=== PATIENT | female | born 1990 | race American Indian/Alaskan Native ===

== ENCOUNTER 2018-01-28 05:49 | Inpatient (IN) | payer OTHER ==
--- NOTE | 2018-01-26 13:45 | History and Physical Report ---
History of Present Illness Date of examination: 01/26/18 Chief complaint: IUP @39weeks. Desires repeat delivery History of present illness: EDC Confirmation: 02/04/2018 Gestational Age: 9 1/7 weeks Past History : 2 Term Births: 1 Premature Births: 0 Living Children: 1 Para: 1 Mult. Births: 0 Prev : 1 Aborta: 0 Elect. Ab: 0 Spont. Ab: 0 Ectopics: 0 # 1 Delivery date: 04/2011 Weeks Gestation: 40 labor: no Delivery type: Delivery location: [place] Infant Sex: Female weight: 7#9 Comments: distress Past Medical History: hearing impaired - bilateral hearing aides Past Surgical History: c/s 2010 mirena removal under general 2015 Past Medical History Surgery (Non-patient companion): c/s 2010 mirena removal under general 2015 Abnormal PAP: negative Social Hx: no ETOH/drugs/smoking not worknig Infection History Hx of STD: none HIV Risk Eval: no Hepatitis B Risk Eval: low risk Personal hx. of genital herpes: no Partner hx. of genital herpes: no Rash, Viral, or Febrile illness since last LMP? no Varicella/Chicken Pox Status: Immunized Genetic History Congenital Heart Defect: Mom: no Dad: no Dar Disease: Mom: no Dad: no Thalassemia Mom: no Dad: no Neural Tube Defect Mom: no Dad: no Down's Syndrome Mom: no Dad: no Mark-Sachs Mom: no Dad: no Sickle Cell Disease/Trait Mom: no Dad: no Hemophilia Mom: no Dad: no Muscular Dystrophy Mom: no Dad: no Cystic Fibrosis Mom: no Dad: no Harlan Chorea Mom: no Dad: no Mental Retardation Mom: no Dad: no Fragile X Mom: no Dad: no Other Genetic/Chromosomal Disorder Mom: no Dad: no Child w/other defect Mom: no Dad: no Enviromental Exposures Xray Exposure: no Medication, drug, or alcohol use since LMP: no Chemical/Other Exposure: no Exposure to Cat Liter: no Hx of Parvovirus (Fifth Disease): no Occupational Exposure to Children: none Current Allergies (reviewed today): No known allergies Past History - Obstetrical History Expected Date of Delivery: 02/04/18 Actual Gestation: 38 Week(s) 5 Day(s) Medications and Allergies Active Meds: Active Medications Citric Acid/Sodium Citrate (Bicitra) 30 ml PO ONCE ONE Stop: 01/28/18 05:31 Famotidine (Pepcid) 20 mg IV ONCE ONE Stop: 01/28/18 05:31 Cefazolin Sodium (Ancef/Sterile Water 2 Gm/20 Ml) 2 gm in 20 mls @ 80 mls/hr IV PREOP NR; Protocol Lactated Ringer's (Lactated Ringers) 1,500 mls @ 2,250 mls/hr IV PREOP NR Oxytocin/Sodium Chloride (Pitocin/Ns 20 Unit/1000ml Drip) 20 units in 1,000 mls @ 0 mls/hr IV TITR LA Lidocaine/Prilocaine (Emla) 1 applic TP ONCE PRN PRN Reason: for metcalf catheter insertion Metoclopramide HCl (Reglan) 10 mg IV ONCE ONE Stop: 01/28/18 05:31 - Physical Exam Breasts: Positive: deferred Cardiovascular: Regular rate Lungs: Positive: Normal air movement Abdomen: Positive: soft Extremities: Positive: normal Results All other labs normal. Assessment and Plan - Patient Problems (1) 39 weeks gestation of Status: Acute (2) Maternal care due to uterine scar from previous surgery Status: Chronic Plan to address problem: Consent reviewed and signed. The risks and alternatives for this surgery were reviewed with the patient. She was informed of possible bleeding, infection, injury to bowel, bladder, ureters or other adjacent organs. The patient was instructed/informed the following: The normal length of hospital stay for this procedure. Nothing to eat or drink after midnight the evening prior to surgery. Pre-op instruction sheets given. Wound care instructions given. Infection precautions reviewed, patient to call for any signs or symptoms of infection. The usual discomforts associated with this procedure were detailed. Proper use of pain medicines was reviewed. Patient was given ample opportunity to have all her questions answered before signing informed consent. She was informed her risks for severs and possible fatal complications associated with surgery will inicrease with each delvery. She voiced understanding and desires to proceed with c/s however she declines sterilization (3) Hearing impaired person Status: Chronic (4) BMI 50.0-59.9, adult Status: Chronic
[~2018-01-28 05:49] MED LIST: ANCEF/STERILE WATER 2 GM/20 ML 2 GM/20 ML SYRINGE IV NR; BICITRA PO ONE; EMLA TP PRN; PITOCin/NS 20 UNIT/1000ML DRIP 20 UNITS/1,000 ML BAG IV SCH; REGLAN IV NR
[2018-01-28] MEDS: LACTATED RINGERS 1,500 ML IV NR ×2 (06:15→07:17)
[2018-01-28 07:00] LABS: Hematocrit 36.7 % (30.3-42.9); Hemoglobin 12.5 gm/dl (10.1-14.3); Mean Corpuscular HGB Conc 34 % (30-34); Mean Corpuscular Hemoglobin 29 pg (28-32); Mean Corpuscular Volume 86 fl (79-97); Red Blood Count 4.28 M/mm3 (3.65-5.03); Red Cell Distribution Width 14.7 % (13.2-15.2)
[2018-01-28] MEDS ORDERED: PEPCID IV NR (07:00)
[2018-01-28 07:08] LABS: Platelet Count 167 K/mm3 (140-440)
[2018-01-28] MEDS ORDERED: PITOCin/NS 20 UNIT/1000ML DRIP 20,000 MILLIUNITS/1,000 ML BAG IV ONE (07:10)
[2018-01-28] MEDS ORDERED: REGLAN ONE (07:10)
--- NOTE | 2018-01-28 07:22 | Anesthesia Day of Surgery ---
Anesthesia Day of Surgery - Day of Surgery Patient Examined: Yes Patient H&P Reviewed: Yes Patient is NPO: Yes
--- NOTE | 2018-01-28 07:22 | Anesthesia Consultation ---
Anesthesia Consult and Med Hx Date of service: 01/28/18 - Airway Anesthetic Teeth Evaluation: Good ROM Head & Neck: Adequate Mental/Hyoid Distance: Adequate Mallampati Class: Class III Intubation Access Assessment: Possibly Difficult - Pre-Operative Health Status ASA Pre-Surgery Classification: ASA3 Proposed Anesthetic Plan: Epidural, Spinal - Pulmonary Hx Asthma: No COPD: No Hx Pneumonia: No - Cardiovascular System Hx Hypertension: No - Central Nervous System Hx Seizures: No Hx Psychiatric Problems: No - Endocrine Hx Renal Disease: No Hx End Stage Renal Disease: No Hx Hypothyroidism: No Hx Hyperthyroidism: No - Hematic Hx Anemia: No Hx Sickle Cell Disease: No - Other Systems Hx Alcohol Use: No Hx Obesity: Yes (BMI 51.2) - Additional Comments Anesthesia Medical History Comments: hard of hearing
[2018-01-28] MEDS ORDERED: NACL 0.9% IR ONE (08:00)
[2018-01-28] MEDS ORDERED: SODIUM CHLORIDE FLUSH SYRINGE 10 ML IV PRN (08:00)
[2018-01-28] MEDS ORDERED: BENADRYL IV PRN (08:00)
[2018-01-28] MEDS ORDERED: WATER FOR IRRIG STERILE IR ONE (08:00)
[2018-01-28 08:18] LABS: Basophils % (Manual) 0 % (0.0-1.8); Total Cells Counted 100
[2018-01-28 08:19] LABS: Platelet Estimate Consistent w Auto; RBC Morphology Normal
[2018-01-28] MEDS ORDERED: NEO SYNEPHRINE/NS Syringe(OR USE) IV ONE ×2 (08:23→08:58)
[2018-01-28] MEDS ORDERED: NARCAN 0.4 MG/1 ML IV PRN ×2 (08:30→11:30)
[2018-01-28] MEDS ORDERED: PHENERGAN PO PRN (08:30)
[2018-01-28] MEDS ORDERED: ZOFRAN IV PRN (08:30)
[2018-01-28] MEDS ORDERED: TORADOL IV PRN (08:30)
[2018-01-28] MEDS ORDERED: PHENERGAN PR PRN (08:30)
[2018-01-28] MEDS ORDERED: DILAUDID IV PRN (08:30)
[2018-01-28] MEDS ORDERED: ASTRAMORPH PF 10MG/10ML ONE (08:47)
--- NOTE | 2018-01-28 09:10 | Operative Report ---
Operative Report Operative Report: Date: 01/28/2018 Preoperative diagnosis: 1. Intrauterine at 39 weeks 2. Previous delivery patient desires repeat 3. Morbid obesity 4. Hearing impaired Postoperative diagnosis: 1. Intrauterine at 39 weeks 2. Previous delivery patient desires repeat 3. Morbid obesity 4. Hearing impaired Procedure: Low uterine transverse incision for delivery Surgeon: Peggy Beth MD [facility] Dehydration Reactor Operator: Nancy Yeboah CST Anesthesia: CSE Anesthesiologist: Sheba Cartagena M.D. Estimated blood loss: 700 mL Urine out: 50 mL Findings: Live born male infant. Weight 7 lbs. 13 oz. Apgars 8 at 1 minute and 9 at 5 minutes. Uterus grossly normal, tubes grossly normal, ovaries grossly normal. Procedure: After risk, benefits, complications, consequences and alternatives for this procedure were discussed with patient and consents were reviewed and signed, she was taken to the OR where CSE anesthesia was placed. She was then placed in the left lateral tilt position, and prepped and draped in the usual sterile fashion. Timeout was performed, and an appropriate level of anesthesia was noted, a Pfannenstiel incision was made and extended to the fascia which was incised and extended in the lateral directions. The overlying fascia was sharply dissected away from the underlying rectus muscles in the superior and inferior directions. The midline was entered bluntly. The vesicouterine fold was incised and with blunt dissection the bladder flap was created. A transverse incision was made in the lower uterine segment and extended in superiolateral direction with finger fractionation. Clear fluid was noted. The infant was delivered from vacuum assisted cephalic LOT position. Mouth and nose were bulb suctioned. Spontaneous cry and excellent tone were noted. Cord was doubly clamped and cut. The was given to /resuscitation team present. The placenta was manually extracted. The uterus was then exteriorized and cleared of any further products of conception or placental tissue. The incision was reapproximated using 0 Vicryl in a running interlocking stitch. Further suture of 0 Vicryl was placed in the incision in imbricating fashion. Grossly normal uterus, tubes and ovaries were noted. Once hemostasis was noted, the uterus was allowed back into the pelvic cavity. The pelvis was irrigated with warm normal saline. Again hemostasis was noted . Surgicel applied for further hemostasis. Interceed was then placed to prevent adhesions. Then attention was turned to the rectus muscles. The rectus muscles reapproximated using 0 Vicryl in a simple interrupted stitch x 3. Once hemostasis was noted, the fascia was reapproximated using 0 Vicryl running stitch fashion. Once hemostasis was noted skin incision was reapproximated using 4-0 Vicryl on a Roger needle in a subcuticular manner. Counts were correct 3. Patient tolerated procedure well state recovery room in stable condition.
[2018-01-28] MEDS ORDERED: D5LR 1,000 ML IV SCH (11:30)
[2018-01-28] MEDS ORDERED: SODIUM CHLORIDE FLUSH SYRINGE 10 ML IV NR (11:30)
[2018-01-28] MEDS ORDERED: LANSINOH TP PRN (11:30)
[2018-01-28] MEDS ORDERED: PITOCin/NS 20 UNIT/1000ML DRIP 20 UNITS/1,000 ML BAG IV SCH (11:30)
[2018-01-28] MEDS ORDERED: TUCKS PAD TP PRN (11:30)
[2018-01-28] MEDS: ANCEF/NS 1 GM/50 ML 1 GM/50 ML BAG IV SCH (17:08)
[2018-01-28] MEDS ORDERED: PERCOCET 5/325 PO PRN (20:02)
[2018-01-28 21:47] LABS: Hematocrit 34.1 % (30.3-42.9); Hemoglobin 11.1 gm/dl (10.1-14.3)
[2018-01-29] MEDS: ANCEF/NS 1 GM/50 ML 1 GM/50 ML BAG IV SCH (00:53)
[2018-01-29] MEDS ORDERED: BOOSTRIX IM ONE (06:00)
--- NOTE | 2018-01-29 06:36 | Progress Note ---
Assessment and Plan - Patient Problems (1) delivery delivered Onset Date: ~01/28/18 Current Visit: Yes Status: Acute Plan to address problem: pt A&O X 3 No c/o voiced VSS FF below Lochia small Dressing D&I to be removed H& H stable Pt is asymptomatic Doing well s/p c/s P: continue pathway Advance diet and activity as tolerated Subjective - Subjective Date of service: 01/29/18 (no c/o voiced) Principal diagnosis: Day #1 s/p section Patient reports: appetite normal, voiding normally, pain well controlled, ambulating normally : doing well Objective - Vital Signs Latest vital signs: Vital Signs Temp Pulse Resp BP BP Pulse Ox 01/29/18 06:13 98.6 F 89 17 118/69 98 01/29/18 00:00 98.9 F 89 18 121/75 99 01/28/18 20:00 98.1 F 97 H 18 143/81 100 01/28/18 17:11 98.5 F 90 18 136/95 01/28/18 10:43 97.8 F 74 124/75 100 01/28/18 10:10 97.7 F 72 22 127/77 100 01/28/18 09:55 71 22 123/73 100 01/28/18 09:40 67 22 124/74 100 01/28/18 09:25 68 18 118/59 100 01/28/18 09:20 71 21 115/62 100 01/28/18 09:15 68 19 106/60 100 01/28/18 09:10 97.7 F 71 19 107/60 99 01/28/18 06:59 98.0 F 88 18 140/79 01/28/18 06:51 88 140/79 Intake and Output 01/28/18 01/28/18 01/29/18 14:59 22:59 06:59 Intake Total 1600 535 Output Total 300 1400 Balance 1300 535 -1400 Intake: IV 1600 175 ANCEF/NS 1 GM/50 ML 1 gm 50 In 50 ml @ 100 mls/hr IV [facility] Rx#:[id number] Left Hand 125 Oral 360 Output: Urine 300 1400 Indwelling Catheter 900 Void 500 Other: Total, Intake Amount 360 Total, Output Amount 500 Estimated Blood Loss 700 - Exam Breasts: Present: normal Cardiovascular: Present: Regular rate Lungs: Present: Normal air movement Abdomen: Present: normal appearance, soft, normal bowel sounds Uterus: Present: normal, fundal height at umbilicus Extremities: Present: normal Deep Tendon Reflex Grade: Normal +2 Incision: Present: normal, dry, intact, dressed (to be removed) - Labs Labs: Abnormal lab results 01/28/18 Range/Units 06:25 WBC 11.5 H (4.5-11.0) K/mm3 Monocytes % (Manual) 11.0 H (0.0-7.3) % Monocytes # (Manual) 1.3 H (0.0-0.8) K/mm3 Eosinophils # (Manual) 0.5 H (0.0-0.4) K/mm3
[2018-01-29] MEDS ORDERED: MOTRIN PO PRN (23:03)
[2018-01-29] MEDS ORDERED: MYLICON PO PRN (23:17)
--- NOTE | 2018-01-30 08:41 | Discharge Summary ---
Providers - Providers Date of Admission: 01/28/18 05:49 Date of discharge: 01/30/18 (desires d/c home) Attending physician: RONALDO ANDUJAR 01/28/18 11:30 Consult to Airport Operations Coordinator [CONS] Routine Reason For Exam: Primary care physician: RONALDO ANDUJAR Hospitalization Reason for admission: repeat c/s Condition: Good Pertinent studies: postop H&H 11.1/34.1 Procedures: repeat c/s Hospital course: uncomplicated repeat c/s and postop pathway Disposition: DC-01 TO HOME OR SELFCARE - Discharge Diagnoses (1) delivery delivered Status: Acute Core Measure Documentation - Palliative Care Palliative Care/ Comfort Measures: Not Applicable - Core Measures Any of the following diagnoses?: none Exam - Constitutional Vitals: Temp Pulse Resp BP Pulse Ox 98.3 F 76 18 128/73 98 01/30/18 01:10 01/30/18 01:10 01/30/18 03:50 01/30/18 01:10 01/30/18 01:10 General appearance: Present: no acute distress, well-nourished - EENT Eyes: Present: PERRL ENT: hearing intact, clear oral mucosa - Neck Neck: Present: supple, normal ROM - Respiratory Respiratory effort: normal Respiratory: bilateral: CTA - Cardiovascular Heart Sounds: Present: S1 & S2. Absent: rub, click - Extremities Extremities: pulses symmetrical, No edema Peripheral Pulses: within normal limits - Abdominal General gastrointestinal: Present: soft, non-tender, non-distended, normal bowel sounds Female genitourinary: Present: normal - Integumentary Integumentary: Present: clear, warm, dry - Musculoskeletal Musculoskeletal: gait normal, strength equal bilaterally - Psychiatric Psychiatric: appropriate mood/affect, intact judgment & insight - Neurologic Neurologic: CNII-XII intact, moves all extremities - Additional findings Additional findings: incision D&I (wound care reviewed, shower daily and dry under panis completely) , fundus firm, lochia scant, H&H stable. Plan Activity: no restrictions, advance as tolerated Diet: regular Wound: open to air, keep clean and dry, other (shower daily) Follow up with: RONALDO ANDUJAR MD [Primary Care Provider] - 7 Days (Congratulations! Please call [phone] to schedule your son's circumcision in 1 week and your incision check in 1 week. Bring EMLA cream to your son's visit and await further instructions. Call for any questions or concerns.) Prescriptions: Ibuprofen [Motrin 800 MG tab] 800 mg PO TID PRN #30 tablet PRN Reason: Pain Lidocain2.5%/Prilocai2.5% [Emla] 5 gm TP ONCE #1 tube oxyCODONE /ACETAMINOPHEN [Percocet 5/325 mg] 1 - 2 tab PO Q4HR PRN #30 tablet PRN Reason: Pain
[2018-01-30] MEDS ORDERED: COLACE PO SCH (10:00)
[2018-01-30] MEDS ORDERED: DEPO-PROVERA (CONTRACEPTION) IM ONE (12:33)
[2018-01-30 15:06] VITALS: BP 139/90
== END 2018-01-30 15:00 | disposition home or self-care (01) | DRG 765 ==
LOC: LD 05:49 → APU 06:02 → OB 10:59
PROVIDERS: ADMIT Obstetrics & Gynecology; ATTEND Obstetrics & Gynecology
PROC: 10D00Z1 Extraction of Products of Conception, Low, Open Approach (ICD-10-PCS; principal; 2018-01-28)
DX: O34.219 Maternal care for unspecified type scar from previous cesarean delivery (principal); Z68.43 Body mass index [BMI] 50.0-59.9, adult; Z3A.39 39 weeks gestation of pregnancy; Z37.0 Single live birth; E66.01 Morbid (severe) obesity due to excess calories; Z71.3 Dietary counseling and surveillance; H91.90 Unspecified hearing loss, unspecified ear; O75.89 Other specified complications of labor and delivery
CPT/HCPCS: 36415; 85007; 85014; 85018; 85025; 86592; 86850; 86900; 86901; 99211; C1765; G0463; J0690; J1050; J1885; J2274; J2370; J2590; J2765; J7120